=== PATIENT | male | born 1955 | race Caucasian/White ===

== ENCOUNTER 2016-11-04 05:32 | Day surgery (SDC) | payer OTHER ==
[~2016-11-04] VITALS: Ht 180.3 cm; Wt 93.9 kg
--- NOTE | ~2016-11-04 | O ---
[facility] [place] [address] OPERATIVE REPORT Name: CORRIE PAREDES Room #: DEP [facility]..#: [id number] Admission: 11/04/16 Attend Phys: Dank Batres MD Discharge: 11/04/16 Date of : 57 Report #: [id number] THIS REPORT FOR: //name// CC: Dank Suresh MD DATE OF SERVICE: 11/04/2016 PREOPERATIVE DIAGNOSES: 1. Large left inguinal hernia. 2. Umbilical hernia. POSTOPERATIVE DIAGNOSES: 1. Left indirect inguinal hernia. 2. Umbilical hernia. PROCEDURES PERFORMED: 1. Laparoscopic properitoneal repair of left inguinal hernia with large left 3DMax lightweight mesh. 2. Repair of umbilical hernia. SURGEON: Dank Batres M.D. ANESTHESIA: General anesthesia. ESTIMATED BLOOD LOSS: 5 mL. PROCEDURE NOTE: With the patient under general anesthesia, IV antibiotic was administered. Amaro catheter was placed without difficulty. Abdomen was prepped and draped in sterile fashion. Timeout was performed. An incision was made adjacent to the umbilicus on the left side transversely and then carried underneath the umbilicus. The anterior rectus sheath left lateral to the umbilicus was isolated. This was opened transversely. The muscle was spread. The space between the muscle and the posterior sheath was bluntly dissected inferiorly. An 11 mm balloon trocar was placed in this space, balloon was inflated. Laparoscope was placed. A 5 mm trocar was placed about an inch and a half below the umbilicus in the midline. Cautery and blunt dissection was used to free the properitoneal space further. This was freed across the midline. A second 5 mm trocar was placed about an inch and a half below the first 5 mm trocar slightly right of the midline. Dissection was then carried out. No direct defect. The patient had a large left indirect hernia sac. After the patient was asleep, I was able to reduce it. It definitely had bowel within this. The hernia sac was well formed and this was free from over the cord. Dissection was carried out without difficulty. A large hernia sac was isolated and free, brought back in the properitoneal space. At this point because of the [facility] [address] [place] [address] OPERATIVE REPORT Name: CORRIE PAREDES Room #: [facility]P [facility]..#: [id number] Admission: 11/04/16 Attend Phys: Dank Batres MD Discharge: 11/04/16 Date of : 57 Report #: [id number] large sac, I went ahead and ligated it with an 0 PDS Endoloop close to the base and then excised the excessive hernia sac. Then, peritoneal hernia sac was retrieved through the 5 mm trocar without difficulty. Once this was performed and the cord structure was isolated, and the properitoneal space was opened up, a large left-sided 3DMax lightweight mesh was placed through the 11 mm balloon trocar. This was then opened in the properitoneal space. The mesh was positioned and then tacked to the lateral wall, lateral to the internal ring with SorbaFix. Mesh was then tacked inferiorly to Kevin's ligament and then medial superiorly to the rectus muscle. The mesh seated well covering the internal ring well and also reinforcing the Hesselbach triangle. CO2 was evacuated and trocars removed. The incision underneath the umbilicus was then carried across the midline and then an umbilical hernia was found. There was about a cm and a half of fat protruding through this. This was isolated from the overlying skin. Fascia defect was then cleaned off. The fascia defect is about a cm. Tissues fairly good strength and after the fascia edges were trimmed, the fascia defect was closed with [id number] 0 Prolene times 2. The umbilicus defect was closed without any undue tension. The defect in the anterior rectus sheath laterally for the laparoscopic hernia repair was closed with 0 PDS [id number] times 2. Skin was irrigated with local anesthetic and then closed with 5-0 PDS. The umbilicus skin was tucked down to the fascia. The skin was then with 5-0 PDS in a subcuticular fashion. Steri-Strip, Band-Aids were applied. The patient awakened and taken to recovery room, tolerated the procedure well. By: [id number] Dank Batres MD /nt
--- NOTE | ~2016-11-04 | H ---
[facility] [place] [address] HISTORY AND PHYSICAL Name: CORRIE PAREDES Room #: 150-4 [facility] M..#: [id number] Admission: 11/04/16 Attend Phys: Dank Btares MD Discharge: Date of : 57 Report #: [id number] THIS REPORT FOR: //name// CC: Dank Suresh MD PREOPERATIVE DIAGNOSES: Left inguinal hernia and umbilical hernia, here for repair. HISTORY OF PRESENT ILLNESS: The patient is a 61-year-old who has noticed a hernia on the left groin for a few years. This is progressively getting larger and bothersome. The patient has to do exercises because of his back in the morning and he seems to notice issues after that. He also notices problem if he has been sitting at his desk for a while. When he exercises, there is generalized soreness there. He had some pain 2 weeks ago after replacing a storm door. Next day, he had quite a bit of soreness. No nausea, no vomiting, no bloating. The patient's bowels are working well. He does have some urinary issue with nocturia. He has enlarged prostate and has had urologic procedures in the past. The patient is aware that a catheter will be placed at the time of surgery. Hopefully, he can be catheterized. He had not seen a urologist for about 15 years. The patient is brought in for the procedure. He says that recently he has been having trouble pushing the hernia back in because it is getting larger. The patient was found to have a pretty large-sized left inguinal hernia and is brought here for repair. PAST MEDICAL HISTORY: 1. History of hypoglycemia. 2. Asthma. 3. Environmental allergy. 4. Compressed vertebrae in the lower back. PAST SURGICAL HISTORY: Tonsillectomy, appendectomy, vasectomy, deviated septum and urologic procedure. MEDICATIONS: Fluconazole, Singulair, atorvastatin 20 mg, zaey-[id number] allergy pill, Asmanex and inhalers as needed. ALLERGIES: He is allergic to PENICILLIN and SULFA. He had pretty bad rash from PENICILLIN. FAMILY HISTORY: Father has back injury, lung issues , Staph infection. There is allergy that runs in the family. Breathing difficulties and hypoglycemia runs in the family. 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 Does not smoke. He has about 1-2 drinks a day. [facility] [address] [place] [address] HISTORY AND PHYSICAL Name: CORRIE PAREDES Room #: 150-4 [facility] M.R.#: [id number] Admission: 11/04/16 Attend Phys: Dank Batres MD Discharge: Date of : 57 Report #: [id number] REVIEW OF SYSTEMS: Allergy affects his eyes, nose and throat. Occasional asthma. Low back issue on review of systems. No chest pain, shortness of breath or palpitation. PHYSICAL EXAMINATION: GENERAL: The patient is a well-developed, well-nourished male, in no acute distress. He is moderately obese. HEENT: Pupils react to light. Extraocular muscles are intact. Oropharynx clear. NECK: Soft and supple. No JVD. LUNGS: Clear. No wheezes. HEART: Regular rate and rhythm. No murmur or gallop. ABDOMEN: Soft, nondistended and nontender. No mass, guarding or rigidity. GENITOURINARY: He does have an umbilical hernia. On the groin exam, the patient does have a fairly large left inguinal hernia. It is partially reducible. No hernia detected on the right side. Testicles are descended. No testicular masses. EXTREMITIES: No cyanosis, clubbing or edema. Moves all extremities well. NEUROLOGIC: Sensory exam is normal. Motor strength is normal. IMPRESSION AND PLAN: The patient is a 61-year-old with a symptomatic left inguinal hernia. He has had this for a long time, but has become more symptomatic and larger. I have since recommended mesh repair of hernia at the time of surgery. The patient understands the procedure and wishes to proceed. A properitoneal approach was discussed. The risk of bleeding, infection and mesh infection was discussed. The patient will need to have a catheter for the properitoneal dissection. It may be difficult to catheterize him because of his previous urologic issues. The patient understands that. The patient wished to proceed with surgery. By: [id number] Dank Batres MD /nt
[~2016-11-04 05:32] MED LIST: ASMANEX220 MC1 INH; ATORVASTATIN CA20 MG PO; FEXOFENADINE H180 MG PO; FLONASE 0.05%50 MCG NASAL; SINGULAIR 10 MG10 M1 PO; TUMS PO; VENTOLIN HFA 1818 GM INH; ZADITOR5 M1 OPHTHALMIC
[2016-11-04 07:56] LABS: HEMATOCRIT 46.3 % (42.0-52.0); HEMOGLOBIN 15.8 gm/dL (14.0-18.0)
[2016-11-04] MEDS ORDERED: NORCO 5-325 TA1 EACH PO (11:06)
== END 2016-11-04 12:20 | disposition home or self-care (01) ==
LOC: OR 05:32 → TBA 05:32 → OR 10:31
PROVIDERS: Surgery
DX: K40.90 Unilateral inguinal hernia, without obstruction or gangrene, not specified as recurrent (principal); K42.9 Umbilical hernia without obstruction or gangrene; E78.00 Pure hypercholesterolemia, unspecified; K21.9 Gastro-esophageal reflux disease without esophagitis; J45.909 Unspecified asthma, uncomplicated; Z90.49 Acquired absence of other specified parts of digestive tract; Z98.890 Other specified postprocedural states
CPT/HCPCS: 50010; 50101; 50411; 50507; 50555; 50848; 51297; 53065; 53307; 56462; 56525; 56526; 62110; 62900; 70005

== ENCOUNTER → 2017-05-11 | Outpatient (CLI) | payer OTHER ==
[~2017-05-11] MED LIST changes: +NORCO 5-325 TA1 EACH PO
== END ==
LOC: RAD 17:34
DX: M47.896 Other spondylosis, lumbar region (principal); M17.0 Bilateral primary osteoarthritis of knee

== ENCOUNTER → 2018-07-05 | Outpatient (CLI) | payer OTHER ==
[~2018-07-05] MED LIST changes: +ADVAIR HFA 230M12 GM INH; +XYZAL5 MG PO; +ZPAK PO
== END ==
LOC: NUC 12:53
DX: M81.0 Age-related osteoporosis without current pathological fracture (principal); Z92.241 Personal history of systemic steroid therapy

== ENCOUNTER → 2020-08-07 | Outpatient (CLI) | payer OTHER | LOC: LAB 08:21 | PROVIDERS: ATTEND Neuromusculoskeletal Medicine & OMM | DX: Z20.822 Contact with and (suspected) exposure to COVID-19 (principal) ==

== ENCOUNTER → 2021-09-02 | Outpatient (CLI) | payer OTHER | LOC: NUC 10:00 | PROVIDERS: ATTEND Nurse Practitioner | DX: M85.88 Other specified disorders of bone density and structure, other site (principal); M81.6 Localized osteoporosis [Lequesne] ==